=== PATIENT | male | born 1990 | race Caucasian/White ===

== ENCOUNTER 2016-08-06 09:56 | Inpatient (IN) | payer OTHER ==
[2016-08-06 10:58] VITALS: BMI 21.9
[2016-08-06] MEDS ORDERED: MAGNESIUM HYDROX 2400MG/30ML ORAL SUSPENSION 30 ML CUP PO PRN (11:51)
[2016-08-06] MEDS ORDERED: guaiFENesin/D-METHORPHAN HB 10 ML UNIT-DOSE CUPS PO PRN (11:51)
[2016-08-06] MEDS ORDERED: MAGNESIUM CITRATE 300 ML BOTTLE PO PRN (11:51)
[2016-08-06] MEDS ORDERED: MAG HYDROX/AL HYDROX/SIMETH 30 ML UNIT-DOSE CUP PO PRN (11:51)
[2016-08-06] MEDS ORDERED: NICOTINE POLACRILEX 4 MG GUM BUC PRN (11:51)
[2016-08-06] MEDS ORDERED: ACETAMINOPHEN 325 MG TABLET (FP) PO PRN (11:51)
[2016-08-06] MEDS ORDERED: LOPERAMIDE HCL 2 MG CAPSULE PO PRN (11:51)
[2016-08-06] MEDS ORDERED: IBUPROFEN 400 MG TABLET (FP) PO PRN (11:51)
[2016-08-06] MEDS ORDERED: MENTHOL/PHENOL 1 EACH UD MM PRN (11:51)
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
[2016-08-06] MEDS ORDERED: METHADONE HCL 10 MG TABLET (FOR DETOX USE ONLY) PO ONE ×2 (12:37→23:00)
[2016-08-06] MEDS: diazePAM 5 MG TABLET PO PRN ×2 (13:31→18:45)
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
[2016-08-06 17:28] LABS: URINE APPEARANCE CLOUDY; URINE BILIRUBIN NEGATIVE (NEGATIVE); URINE BLOOD NEGATIVE (NEGATIVE); URINE COLOR YELLOW; URINE GLUCOSE (UA) NEGATIVE (NEGATIVE); URINE KETONE NEGATIVE (NEGATIVE); URINE LEUK ESTERASE NEGATIVE (NEGATIVE); URINE NITRITE NEGATIVE (NEGATIVE); URINE PROTEIN NEGATIVE (NEGATIVE); URINE UROBILINOGEN NEGATIVE E.U./dl (0.2-1.0)
[2016-08-06] MEDS: ALBUTEROL SO4 0.083% IH SOL 2.5 MG/3 ML VIAL.NEB. NEB PRN (17:50)
[2016-08-06] MEDS: ZOLPIDEM TARTRATE 10 MG TABLET (PARK CARE ONLY) PO PRN (22:11)
[2016-08-06] MEDS: MONTELUKAST NA 10 MG TABLET PO SCH (22:11)
[2016-08-06] MEDS: THIAMINE HCL 100 MG TABLET (FP) PO SCH (22:11)
[2016-08-06] MEDS: ALBUTEROL SO4 6.7 GM HFA INHALER IH PRN (23:05)
[2016-08-06] MEDS: MOMETASONE FUROATE 110 MCG/IH INHALER IH SCH (23:06)
[2016-08-07] MEDS: diazePAM 5 MG TABLET PO PRN ×4 (00:44→22:13)
[2016-08-07] MEDS: diphenhydrAMINE HCL 50 MG CAPSULE PO PRN (00:44)
[2016-08-07] MEDS: ALBUTEROL SO4 0.083% IH SOL 2.5 MG/3 ML VIAL.NEB. NEB PRN (01:15)
[2016-08-07] MEDS: ALBUTEROL SO4 6.7 GM HFA INHALER IH PRN ×2 (06:06→14:57)
[2016-08-07 09:13] LABS: HIV 1 & 2 AB NEGATIVE; HIV 1 AGp24 NEGATIVE
[2016-08-07 09:49] LABS: MCH 30.2 pg (25.7-33.7); MCHC 32.8 g/dl (32.0-35.9); MEAN PLT VOLUME 9.7 fl (7.5-11.1); PLATELET COUNT 210 K/MM3 (134-434); RDW 13.3 % (11.9-15.9); WHITE BLOOD COUNT 9.7 K/mm3 (4.0-10.0)
[2016-08-07] MEDS ORDERED: METHADONE HCL 10 MG TABLET (FOR DETOX USE ONLY) PO ONE (10:00)
[2016-08-07] MEDS: MOMETASONE FUROATE 110 MCG/IH INHALER IH SCH ×2 (10:19→22:14)
[2016-08-07] MEDS: P-EPHED 60MG/TRIPROLIDI 2.5MG TABLET PO PRN (10:19)
[2016-08-07] MEDS: PRENATAL VITAMINS W/ FOLIC ACID TABLET (FP) PO SCH (10:19)
[2016-08-07] MEDS: NICOTINE 21 MG/24 HOURS TOPICAL PATCH TD SCH (10:20)
[2016-08-07 10:31] LABS: ALBUMIN 4.4 g/dl (3.4-5.0); ALK PHOS 65 U/L (45-117); ANION GAP 11 (8-16); BILIRUBIN,TOTAL 1.1 mg/dL (0.2-1.0); CALCIUM 9.7 mg/dL (8.5-10.1); CO2 28 mmol/L (21-32); COCKROFT - GAULT 81.07; CREATININE 1.2 mg/dL (0.7-1.3); GLUCOSE,RANDOM 127 mg/dL (74-106); SGOT/AST 23 U/L (15-37); SGPT/ALT 26 U/L (12-78); TOT PROT 7.2 g/dl (6.4-8.2)
--- NOTE | 2016-08-07 12:23 | PN ---
BHS COWS - Scale Resting Pulse: 1= [place] 81-100 Sweatin=Flushed/Facial Moisture Restless Observation: 1= Difficult to Sit Still Pupil Size: 0= Normal to Room Light Bone or Joint Aches: 2= Severe Diffuse Aches Runny Nose/ Eye Tearin= Runny Nose/Eyes GI Upset > 30mins: 3= Vomiting/Diarrhea Tremor Observation of Outstretched Hands: 2= Slight Tremor Visible Yawning Observation: 0= None Anxiety or Irritability: 2=Irritable/Anxious Goose Flesh Skin: 0=Smooth Skin COWS Score: 15 BHS Progress Note (SOAP) Subjective: Tremors, Fatigue, Diarrhea, Vomiting, Sweating, Interrupted sleep, Body Aches. Objective: PT. A & O X 3 (DISORIENTED ABOUT DAY / DATE). PT. OBSERVED AMBULATING ON UNIT. 08/07/16 12:21 Vital Signs Temperature 96.2 F L 08/07/16 09:16 Pulse Rate 90 08/07/16 09:16 Respiratory Rate 20 08/07/16 09:16 Blood Pressure 116/70 08/07/16 09:16 O2 Sat by Pulse Oximetry (%) Laboratory Last Values WBC 9.7 K/mm3 (4.0-10.0) 08/07/16 06:00 RBC 5.28 M/mm3 (4.00-5.60) 08/07/16 06:00 Hgb 15.9 GM/dL (11.7-16.9) 08/07/16 06:00 Hct 48.6 % (35.4-49) 08/07/16 06:00 MCV 92.0 fl (80-96) 08/07/16 06:00 MCHC 32.8 g/dl (32.0-35.9) 08/07/16 06:00 RDW 13.3 % (11.9-15.9) 08/07/16 06:00 Plt Count 210 K/MM3 (134-434) 08/07/16 06:00 MPV 9.7 fl (7.5-11.1) 08/07/16 06:00 Sodium 138 mmol/L (136-145) 08/07/16 06:00 Potassium 4.0 mmol/L (3.5-5.1) 08/07/16 06:00 Chloride 99 mmol/L (98-107) 08/07/16 06:00 Carbon Dioxide 28 mmol/L (21-32) 08/07/16 06:00 Anion Gap 11 (8-16) 08/07/16 06:00 BUN 15 mg/dL (7-18) 08/07/16 06:00 Creatinine 1.2 mg/dL (0.7-1.3) 08/07/16 06:00 Creat Clearance w eGFR > 60 (>60) 08/07/16 06:00 Random Glucose 127 mg/dL (74-106) H 08/07/16 06:00 Calcium 9.7 mg/dL (8.5-10.1) 08/07/16 06:00 Total Bilirubin 1.1 mg/dL (0.2-1.0) H 08/07/16 06:00 AST 23 U/L (15-37) 08/07/16 06:00 ALT 26 U/L (12-78) 08/07/16 06:00 Alkaline Phosphatase 65 U/L (45-117) 08/07/16 06:00 Total Protein 7.2 g/dl (6.4-8.2) 08/07/16 06:00 Albumin 4.4 g/dl (3.4-5.0) 08/07/16 06:00 Urine Color Yellow 08/06/16 15:00 Urine Appearance Cloudy 08/06/16 15:00 Urine pH 7.0 (5.0-8.0) 08/06/16 15:00 Ur Specific [place] 1.020 (1.005-1.025) 08/06/16 15:00 Urine Protein Negative (NEGATIVE) 08/06/16 15:00 Urine Glucose (UA) Negative (NEGATIVE) 08/06/16 15:00 Urine Ketones Negative (NEGATIVE) 08/06/16 15:00 Urine Blood Negative (NEGATIVE) 08/06/16 15:00 Urine Nitrite Negative (NEGATIVE) 08/06/16 15:00 Urine Bilirubin Negative (NEGATIVE) 08/06/16 15:00 Urine Urobilinogen Negative E.U./dl (0.2-1.0) 08/06/16 15:00 Ur Leukocyte Esterase Negative (NEGATIVE) 08/06/16 15:00 HIV 1&2 Antibody Screen Negative 08/06/16 13:25 HIV P24 Antigen Negative 08/06/16 13:25 LABS NOTED. Assessment: 08/07/16 12:22 WITHDRAWAL SYMPTOMS. Plan: CONTINUE DETOX. BGM ACBK TOMORROW FOR ELEVATED ADMISSION RANDOM GLUCOSE LEVEL. ADVISED PATIENT TO FOLLOW-UP WITH OFFICE TECHNOLOGY INSTRUCTOR AFTER DISCHARGE FROM DETOX FOR GENERAL MEDICAL ASSESSMENT AND FOR ABNORMAL ADMISSION LAB VALUES.
[2016-08-07] MEDS: predniSONE 5 MG TABLET (UD) PO SCH (12:33)
--- NOTE | 2016-08-07 12:51 | EKG ---
Test Reason : Blood Pressure : / mmHG Vent. Rate : 085 BPM Atrial Rate : 085 BPM P-R Int : 142 ms QRS Dur : 090 ms QT Int : 344 ms P-R-T Axes : 080 039 042 degrees QTc Int : 409 ms NORMAL SINUS RHYTHM SEPTAL INFARCT , AGE UNDETERMINED ABNORMAL ECG NO PREVIOUS ECGS AVAILABLE Confirmed by CHAD TORRES, BELKYS ([id number]) on 08/07/2016 12:51:05 PM Referred By: Confirmed By:BELKYS BONILLA MD
[2016-08-07] MEDS: THIAMINE HCL 100 MG TABLET (FP) PO SCH (22:13)
[2016-08-07] MEDS: MONTELUKAST NA 10 MG TABLET PO SCH (22:13)
[2016-08-07] MEDS: ZOLPIDEM TARTRATE 10 MG TABLET (PARK CARE ONLY) PO PRN (22:14)
[2016-08-07] MEDS: hydrOXYzine PAMOATE 25 MG CAPSULE (FP) PO PRN (23:13)
--- NOTE | 2016-08-07 23:30 | PN ---
S Progress Note Note: patient is disruptive on the unit, initiative attention seeking, engage with peers against staff, transferred to 6N, continue detox
[2016-08-08] MEDS: P-EPHED 60MG/TRIPROLIDI 2.5MG TABLET PO PRN (00:34)
[2016-08-08] MEDS: ALBUTEROL SO4 0.083% IH SOL 2.5 MG/3 ML VIAL.NEB. NEB PRN (00:43)
[2016-08-08] MEDS ORDERED: METHADONE HCL 5 MG TABLET (FOR DETOX USE ONLY) PO ONE (10:00)
[2016-08-08] MEDS: MOMETASONE FUROATE 110 MCG/IH INHALER IH SCH ×2 (10:12→22:17)
[2016-08-08] MEDS: diazePAM 5 MG TABLET PO PRN ×2 (10:12→18:31)
[2016-08-08] MEDS: PRENATAL VITAMINS W/ FOLIC ACID TABLET (FP) PO SCH (10:12)
[2016-08-08] MEDS: ALBUTEROL SO4 6.7 GM HFA INHALER IH PRN (10:13)
[2016-08-08] MEDS: predniSONE 5 MG TABLET (UD) PO SCH (10:13)
[2016-08-08] MEDS: NICOTINE 21 MG/24 HOURS TOPICAL PATCH TD SCH (10:13)
[2016-08-08] MEDS: hydrOXYzine PAMOATE 25 MG CAPSULE (FP) PO PRN (10:18)
--- NOTE | 2016-08-08 15:48 | PN ---
Psychiatric Progress Note Vital Signs: Vital Signs Period Temp Pulse Resp BP Sys/[place]over Pulse Ox Last 24 Hr 96.3 F-97.7 F 76-102 16-19 116-133/58-80 Date of Session: 08/08/16 Chief Complaint:: " I feel nervous.Too much noise in this place." HPI: Patient was transferred from [address] [place] [address] because of behavioral dyscontrol.It appears that Mr Knapp has difficulty following redirections and adhering to rules/regulations.Admitted to [facility] for detox treatment for heroin and benzodiazepine dependence.No previous history of psychiatric hospitalizations. ROS: Alert and fully oriented.Feels anxious.No somatic complaints. Current Medications: Active Medications Generic Name Dose Route Start Last Admin Trade Name Freq PRN Reason Stop Dose Admin Acetaminophen 650 mg 08/06/16 11:51 Tylenol - PO Q4H PRN FEVER OR PAIN Al Hydroxide/Mg Hydroxide 30 ml 08/06/16 11:51 Mylanta Oral Suspension - PO Q6H PRN DYSPEPSIA Albuterol Sulfate 2 puff 08/06/16 11:59 08/08/16 10:13 Ventolin Hfa Inhaler - IH 2 inh Q4H PRN Administration SHORTNESS OF BREATH Albuterol Sulfate 1 amp 08/06/16 12:33 08/08/16 00:43 Ventolin 0.083% Nebulizer Soln - NEB 1 amp Q4H PRN Administration SHORT OF BREATH/WHEEZING Diazepam 10 mg 08/06/16 11:51 08/08/16 10:12 Valium - PO 08/09/16 11:50 10 mg Q4H PRN Administration WITHDRAWAL(CONT SUBST) Diphenhydramine HCl 50 mg 08/06/16 11:51 08/07/16 00:44 Benadryl - PO 50 mg HSMR1 PRN Administration INSOMNIA Eucalyptus/Menthol/Phenol/Sorbitol 1 each 08/06/16 11:51 Cepastat Lozenge - MM Q4H PRN SORE THROAT Guaifenesin 10 ml 08/06/16 11:51 Robitussin Dm - PO Q6H PRN COUGH Hydroxyzine Pamoate 25 mg 08/06/16 11:51 08/08/16 10:18 Vistaril - PO 25 mg Q4H PRN Administration AGITATION Ibuprofen 400 mg 08/06/16 11:51 Motrin - PO Q6H PRN SEVERE PAIN Loperamide HCl 4 mg 08/06/16 11:51 Imodium - PO Q6H PRN DIARRHEA Magnesium Citrate 300 ml 08/06/16 11:51 Citroma - PO Q48H PRN CONSTIPATION Magnesium Hydroxide 30 ml 08/06/16 11:51 Milk Of Magnesia - PO DAILY PRN CONSTIPATION Methadone HCl 10 mg 08/10/16 10:00 Dolophine - PO 08/10/16 10:01 ONCE ONE Methadone HCl 15 mg 08/09/16 10:00 Dolophine - PO 08/09/16 10:01 ONCE ONE Methadone HCl 5 mg 08/11/16 06:00 Dolophine - PO 08/11/16 06:01 ONCE@0600 ONE Mometasone Furoate 1 puff 08/06/16 22:00 08/08/16 10:12 Asmanex 110mcg - IH 1 puff BID WILLIE Administration Montelukast Sodium 10 mg 08/06/16 22:00 08/07/16 22:13 Singulair - PO 10 mg HS WILLIE Administration Nicotine 21 mg 08/07/16 10:00 08/08/16 10:13 Nicoderm Patch - TD Not Given DAILY WILLIE Nicotine Polacrilex 4 mg 08/06/16 11:51 Nicorette Gum - BUC Q2H PRN NICOTINE REPLACEMENT RX Prednisone 5 mg 08/07/16 10:00 08/08/16 10:13 Deltasone - PO 5 mg DAILY WILLIE Administration Multivit/Folic Acid/Iron 1 tab 08/07/16 10:00 08/08/16 10:12 Vitamins (Sjr) - PO 1 tab DAILY WILLIE Administration Pseudoephedrine/Triprolidine 1 combo 08/06/16 11:51 08/08/16 00:34 Actifed - PO 1 combo TID PRN Administration NASAL CONGESTION Thiamine HCl 100 mg 08/06/16 22:00 08/07/16 22:13 Vitamin B1 - PO 100 mg HS WILLIE Administration Zolpidem Tartrate 10 mg 08/06/16 16:23 08/07/16 22:14 Ambien - PO 08/09/16 16:22 10 mg HS PRN Administration INSOMNIA Medication(s) Change(s): Seroquel is added to the regimen for behavioral control and mood regulation.Will start with 50 mg po bid.Titration will follow if medication is well tolerated and effective.Patient is made aware of side effects/benefits.Informed of potential for oversedation/falls,metabolic syndrome ,abnormal involuntary movements.Mr Knapp is in agreement with this careplan. Current Side Effect: No Lab tests ordered: No Lab tests reviewed: Yes Provider note:: Progress notes are reviewed.Met with patient.He reports feeling anxious and easily agitated by the behaviors of some patients on the unit." People are always arguing and they scare me.I want something to calm me down." Mr Knapp is clearly medication-seeking and prone to unprovoked angry outbursts.Appears incapable of delaying gratification.Patient expects his requests to be immediately addressed at the expense of others.Continuously making unrealistic,infantile demands as evidenced by his asking for " some strong medication to make me sleep now;all I want is sleep,wake up to eat and get back to sleep and relax." Patient tends to escalate whenever limit setting is implemented.It is reasonable to suspect the presence of an character disorder as a component of this presentation.Mr Knapp is not psychotic.He is in full possession of his mental capacities.His behavior bears all the hallmarks of an antisocial personality construct and the patient is reminded of the consequences of acting out in the therapeutic milieu.For the moment,he seems receptive to teaching as evidenced by a much calmer demeanor.MSE completed.Detoxification treatment is in progress.Observation. Total face to face time:: 35 Mental Status Exam - Mental Status Exam Alert and Oriented to: Time, Place, Person Cognitive Function: Good Patient Appearance: Well Groomed Mood: Nervous, Anxious, Irritable Affect: Labile Patient Behavior: Inappropriate (medication-seeking), Distractible, Impulsive ( intrusive and oblivious to limits) Speech Pattern: Clear (repetitive), Excessive Voice Loudness: Mildly Loud (at times) Thought Process: Disorganized Thought Disorder: Paranoid Ideation Hallucinations: Denies Suicidal Ideation: Denies Insight/Judgement: Poor Sleep: Poorly, Difficulty falling asleep Appetite: Good Muscle strength/Tone: Normal Gait/Station: Normal Psychiatric Treatment Plan - Problem List (1) Opioid dependence with withdrawal Comment: . (2) Sedative hypnotic or anxiolytic dependence Comment: . (3) Nicotine dependence Qualifiers: Nicotine product type: cigarettes Substance use status: uncomplicated Qualified Code(s): F17.210 - Nicotine dependence, cigarettes, uncomplicated Comment: . (4) Substance induced mood disorder Comment: . (5) Anxiety disorder Comment: . (6) Asthma Qualifiers: Asthma severity: moderate persistent Asthma complication type: uncomplicated Qualified Code(s): J45.40 - Moderate persistent asthma, uncomplicated Comment: . (7) Insomnia Qualifiers: Insomnia type: unspecified Qualified Code(s): G47.00 - Insomnia, unspecified Comment: . (8) Personality disorder, unspecified Comment: .
[2016-08-08] MEDS ORDERED: QUEtiapine FUMARATE 50 MG TABLET PO SCH (22:00)
[2016-08-08] MEDS: ZOLPIDEM TARTRATE 10 MG TABLET (PARK CARE ONLY) PO PRN (22:16)
[2016-08-08] MEDS: THIAMINE HCL 100 MG TABLET (FP) PO SCH (22:17)
[2016-08-08] MEDS: MONTELUKAST NA 10 MG TABLET PO SCH (22:17)
[2016-08-09] MEDS: diphenhydrAMINE HCL 50 MG CAPSULE PO PRN (00:27)
[2016-08-09] MEDS: diazePAM 5 MG TABLET PO PRN (00:28)
[2016-08-09] MEDS: ALBUTEROL SO4 0.083% IH SOL 2.5 MG/3 ML VIAL.NEB. NEB PRN (00:52)
[2016-08-09 06:52] VITALS: BP 102/67; PULSE 78; TEMP 97.7
--- NOTE | 2016-08-09 09:21 | PN ---
S CIWA - CIWA Score Nausea/Vomitin Muscle Tremors: 3 Anxiety: 3 Agitation: 2 Paroxysmal Sweats: 1-Minimal Palms Moist Orientation: 0-Oriented Tacttile Disturbances: 1-Very Mild Itch/Numbness Auditory Disturbances: 1-Very Mild Visual Disturbances: 1-Very Mild Sensitivity Headache: 2-Mild CIWA-Ar Total Score: 17 BHS COWS - Scale Resting Pulse: 0= RI 80 or Below Sweatin= Chills/Flushing Restless Observation: 3= Extraneous Movement Pupil Size: 1= Pupils >than Normal Bone or Joint Aches: 2= Severe Diffuse Aches Runny Nose/ Eye Tearin= Runny Nose/Eyes GI Upset > 30mins: 3= Vomiting/Diarrhea Tremor Observation of Outstretched Hands: 2= Slight Tremor Visible Yawning Observation: 2= >3x During Session Anxiety or Irritability: 2=Irritable/Anxious Goose Flesh Skin: 0=Smooth Skin COWS Score: 18 S Progress Note (SOAP) Subjective: ALERT,IRRITABLE,ANXIOUS,INTERRUPTED SLEEP,TREMOR,PAIN IN THE BODY Objective: 08/09/16 09:20 Vital Signs Temperature 97.7 F 08/09/16 06:51 Pulse Rate 78 08/09/16 06:51 Respiratory Rate 18 08/09/16 06:51 Blood Pressure 102/67 08/09/16 06:51 O2 Sat by Pulse Oximetry (%) Laboratory Last Values WBC 9.7 K/mm3 (4.0-10.0) 08/07/16 06:00 RBC 5.28 M/mm3 (4.00-5.60) 08/07/16 06:00 Hgb 15.9 GM/dL (11.7-16.9) 08/07/16 06:00 Hct 48.6 % (35.4-49) 08/07/16 06:00 MCV 92.0 fl (80-96) 08/07/16 06:00 MCHC 32.8 g/dl (32.0-35.9) 08/07/16 06:00 RDW 13.3 % (11.9-15.9) 08/07/16 06:00 Plt Count 210 K/MM3 (134-434) 08/07/16 06:00 MPV 9.7 fl (7.5-11.1) 08/07/16 06:00 Sodium 138 mmol/L (136-145) 08/07/16 06:00 Potassium 4.0 mmol/L (3.5-5.1) 08/07/16 06:00 Chloride 99 mmol/L (98-107) 08/07/16 06:00 Carbon Dioxide 28 mmol/L (21-32) 08/07/16 06:00 Anion Gap 11 (8-16) 08/07/16 06:00 BUN 15 mg/dL (7-18) 08/07/16 06:00 Creatinine 1.2 mg/dL (0.7-1.3) 08/07/16 06:00 Creat Clearance w eGFR > 60 (>60) 08/07/16 06:00 POC Glucometer 91 UNITS (()) 08/09/16 07:32 Random Glucose 127 mg/dL (74-106) H 08/07/16 06:00 Calcium 9.7 mg/dL (8.5-10.1) 08/07/16 06:00 Total Bilirubin 1.1 mg/dL (0.2-1.0) H 08/07/16 06:00 AST 23 U/L (15-37) 08/07/16 06:00 ALT 26 U/L (12-78) 08/07/16 06:00 Alkaline Phosphatase 65 U/L (45-117) 08/07/16 06:00 Total Protein 7.2 g/dl (6.4-8.2) 08/07/16 06:00 Albumin 4.4 g/dl (3.4-5.0) 08/07/16 06:00 Urine Color Yellow 08/06/16 15:00 Urine Appearance Cloudy 08/06/16 15:00 Urine pH 7.0 (5.0-8.0) 08/06/16 15:00 Ur Specific [place] 1.020 (1.005-1.025) 08/06/16 15:00 Urine Protein Negative (NEGATIVE) 08/06/16 15:00 Urine Glucose (UA) Negative (NEGATIVE) 08/06/16 15:00 Urine Ketones Negative (NEGATIVE) 08/06/16 15:00 Urine Blood Negative (NEGATIVE) 08/06/16 15:00 Urine Nitrite Negative (NEGATIVE) 08/06/16 15:00 Urine Bilirubin Negative (NEGATIVE) 08/06/16 15:00 Urine Urobilinogen Negative E.U./dl (0.2-1.0) 08/06/16 15:00 Ur Leukocyte Esterase Negative (NEGATIVE) 08/06/16 15:00 RPR Titer Nonreactive (NONREACTIVE) 08/07/16 06:00 HIV 1&2 Antibody Screen Negative 08/06/16 13:25 HIV P24 Antigen Negative 08/06/16 13:25 Assessment: 08/09/16 09:20 WITHDRAWAL SYMPTOM Plan: CONTINUE DETOX
--- NOTE | 2016-08-09 09:23 | PN ---
S Progress Note Note: ADDENDUM THE NOTE 08/09/16 9.17 AM BELONG TO 08/08/16
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
[2016-08-09] MEDS ORDERED: METHADONE HCL 5 MG TABLET (FOR DETOX USE ONLY) PO ONE (10:00)
[2016-08-10] MEDS ORDERED: METHADONE HCL 10 MG TABLET (FOR DETOX USE ONLY) PO ONE (10:00)
[2016-08-11] MEDS ORDERED: METHADONE HCL 5 MG TABLET (FOR DETOX USE ONLY) PO ONE (06:00)
== END 2016-08-09 09:23 | disposition home or self-care (01) | DRG 773 ==
LOC: YASAS 09:56 → Y3N 12:33 → Y6N 08-07 23:13
PROVIDERS: ADMIT Internal Medicine Addiction Medicine; ATTEND Internal Medicine Addiction Medicine
PROC: HZ2ZZZZ Detoxification Services for Substance Abuse Treatment (ICD-10-PCS; principal; 2016-08-09)
DX: F11.23 Opioid dependence with withdrawal (principal); F13.230 Sedative, hypnotic or anxiolytic dependence with withdrawal, uncomplicated; F17.210 Nicotine dependence, cigarettes, uncomplicated; F19.24 Other psychoactive substance dependence with psychoactive substance-induced mood disorder; F41.9 Anxiety disorder, unspecified; F60.89 Other specific personality disorders; G47.00 Insomnia, unspecified; J45.40 Moderate persistent asthma, uncomplicated; Z91.19 Patient's noncompliance with other medical treatment and regimen; F91.8 Other conduct disorders
CPT/HCPCS: 36415; 80053; 81003; 85027; 86593; 87389; 93005; 93010; 94640